=== PATIENT | female | born 1975 | race Caucasian/White ===

== ENCOUNTER 2024-08-23 00:23 | Emergency (ER) | payer MEDICAID ==
[~2024-08-23] VITALS: Ht 167.6 cm; Wt 107.0 kg
[2024-08-23 01:06] VITALS: BP 164/99; TEMP 98.7; O2SAT 96
[2024-08-23] MEDS ORDERED: TRAM50TA2 PO (01:23)
[2024-08-23] MEDS ORDERED: KETOROLAC TROMETHAMINE INJ 30 MG/ML VIAL ONE (01:28)
[2024-08-23] MEDS: KETOROLAC TROMETHAMINE INJ 30 MG/ML VIAL IM ONE (01:34)
== END 2024-08-23 01:46 | disposition home or self-care (01) ==
LOC: ER 00:30
DX: M54.12 Radiculopathy, cervical region (principal); Z88.0 Allergy status to penicillin; Z88.6 Allergy status to analgesic agent
CPT/HCPCS: 99283; 96372; J1885